=== PATIENT | female | born 1960 | race Caucasian/White ===

== ENCOUNTER 2017-09-28 17:21 | Inpatient (IN) ==
--- NOTE | 2017-09-28 17:50 | XR ---
EXAM DATE: 09/28/2017 5:45 PM EDT AGE/SEX: 56 years / Female INDICATIONS: . Midline chest pain. CLINICAL DATA: This is the patient's initial encounter. Patient reports that signs and symptoms have been present for 2 days and indicates a pain score of 6/10. MEDICAL/SURGICAL HISTORY: Cardiovascular disease. . Cardiac stent. COMPARISON: No prior exams available for comparison. FINDINGS: PA and lateral views of the chest demonstrate the lungs to be symmetrically aerated without evidence of mass, infiltrate or effusion. The cardiomediastinal contours are unremarkable. Osseous structures are intact. CONCLUSION: 1. No acute cardiopulmonary disease. Electronically signed by: Ming Roger MD 09/28/2017 5:49 PM EDT
[2017-09-28 18:14] LABS: Baso % (Auto) 0.4 % (0.0-2.0); Eos # (Auto) 0.2 th/mm3 (0.0-0.4); Eos % (Auto) 2.5 % (0.0-4.0); Hematocrit 39.2 % (35.0-46.0); Lymph % (Auto) 32.7 % (9.0-44.0); Mean Corpuscular HGB Conc 33.1 % (32.0-36.0); Mean Corpuscular Hemoglobin 30.6 pg (27.0-34.0); Mean Corpuscular Volume 92.4 fL (80.0-100.0); Mean Platelet Volume 7.8 fL (7.0-11.0); Mono # (Auto) 0.5 th/mm3 (0.0-0.9); Mono % (Auto) 8.6 % (0.0-8.0); Neut # (Auto) 3.5 th/mm3 (1.8-7.7); Neut % (Auto) 55.8 % (16.0-70.0); Platelet Count 301 th/mm3 (150-450); Red Blood Count 4.24 mil/mm3 (4.00-5.30); Red Cell Distribution Width 13.1 % (11.6-17.2); White Blood Count 6.2 th/mm3 (4.0-11.0)
[2017-09-28 18:15] LABS: Activated Partial Thrombo Time 26.6 sec (24.3-30.1); INR 1.1 Ratio; Prothrombin Time 10.7 sec (9.8-11.6)
[2017-09-28 18:25] LABS: Anion Gap 9 meq/L (5-15); Blood Urea Nitrogen 16 mg/dL (7-18); Calcium 8.9 mg/dL (8.5-10.1); Carbon Dioxide 25.8 meq/L (21.0-32.0); Chloride 107 meq/L (98-107); Glomerular Filtration Rate 62 mL/min (>89); Glucose,Random 99 mg/dL (74-106); Potassium 3.6 meq/L (3.5-5.1); Sodium 142 meq/L (136-145)
--- NOTE | 2017-09-28 19:29 | ED ---
HPI General Chief Complaint: Chest Pain Stated Complaint: chest pain Time Seen by Provider: 09/28/17 18:12 Source: patient Mode of arrival: ambulatory Limitations: no limitations History of Present Illness HPI narrative: 56-year-old female presents to the emergency department by private transportation for complaint of chest pain on and off since yesterday. Patient had chest pain it is 6/10 in intensity at 5:15 PM took one sublingual nitroglycerin with resolution of pain but had recurrent pain at 5:55 PM took an additional sublingual nitroglycerin and had resolution of pain but currently has discomfort 3-4/10 in intensity. Patient is describing her pain as heartburn and burning sensation with some radiation to the left upper extremity and left subscapular region. Patient states she was evaluated for same symptoms June 2017 and underwent stent of the LAD at subsequent restenting due to reocclusion August 02. Patient's surgical scheduler is Dr. Sullivan. Patient's been doing well until yesterday and today. Patient had some associated mild shortness of breath no nausea no vomiting no sweats no abdominal pain. Patient is unable to identify exacerbating symptoms does note that nitroglycerin does provide some relief. Patient did take 81 mg of aspirin this morning but none prior to arrival to the emergency departPatient does have history of dyslipidemia. Patient has family history of early onset heart disease. Patient denies hypertension tobaccoism or diabetes. 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 MD complaint: chest pain Complete Quality Measures for STEMI Alert Patients STEMI Alert: No Onset (ago): day(s) Duration: intermittent Onset: during rest Pain location: substernal Severity: moderate Severity scale (1-10): 6 Quality: dull and other (Indigestion) Pain radiation: LUE Relieving factors: nitroglycerin Exacerbating factors: nothing Context: other (Cardiac stent placed 06/2017) Associated symptoms: nausea (none now), dyspnea (mild) and cough (occasional) Treatments prior to arrival chest pain: nitroglycerin Related Data On Oral Contraceptives: No Home Medications Medication Instructions Recorded Confirmed aspirin 81 mg PO DAILY 09/28/17 09/28/17 clopidogrel [Plavix] 75 mg PO DAILY 09/28/17 09/28/17 diltiazem HCl 120 mg PO DAILY 09/28/17 09/28/17 gabapentin 300 mg PO HS 09/28/17 09/28/17 lansoprazole [Prevacid] 30 mg PO BID 09/28/17 09/28/17 methocarbamol [Robaxin] 500 mg PO DAILY 09/28/17 09/28/17 ranitidine HCl [Zantac] 300 mg PO HS 09/28/17 09/28/17 rosuvastatin [Crestor] 40 mg PO DAILY 09/28/17 09/28/17 temazepam 15 mg PO HS 09/28/17 09/28/17 Allergies Allergy/AdvReac Type Severity Reaction Status Date / Time clarithromycin Allergy Severe Verified 07/19/17 09:03 latex Allergy Severe Verified 07/19/17 09:03 tramadol Allergy Severe Verified 07/19/17 09:03 Review of Systems ROS: all other systems reviewed are negative [facility] Medical History Medical History CAD (coronary artery disease) (Acute) Connective tissue disease (Acute) Gastroparesis (Acute) High cholesterol (Acute) RHA (rheumatoid arthritis) (Acute) Surgical History Surgical History H/O breast augmentation (Acute) H/O heart artery stent (Acute) Hx of cholecystectomy (Acute) Social History Social History Substance History: No History of Abuse Second Hand Smoke Exposure: No Smoking Status: Never smoker How Often Do You Have a Drink Containing Alcohol: Never Recent Travel in [facility] within the Last 8 Weeks: No Recent Out of Country Travel within the Last 8 Weeks: No Immunization History Tetanus Immunization: <5 Years Hx Influenza Vaccine This Season: Yes Exam Narrative Exam Narrative: GENERAL: Well-nourished, well-developed patient.No acute distress no respiratory distress. SKIN: Focused skin assessment warm/dry. HEAD: Normocephalic. EYES: No scleral icterus. No injection or drainage. NECK: Supple, trachea midline. No JVD or lymphadenopathy. CARDIOVASCULAR: Regular rate and rhythm without murmurs, gallops, or rubs. RESPIRATORY: Breath sounds equal bilaterally. No accessory muscle use. GASTROINTESTINAL: Abdomen soft, non-tender, nondistended. MUSCULOSKELETAL: No cyanosis, or edema. BACK: Nontender without obvious deformity. No CVA tenderness. Course Reevaluation(s) Reevaluation #1: @ 19:31 CP: 0/10 after x 1 SL NTG 0.4mg; call placed to the patient's surgical scheduler Dr Sullivan Time: 19:31 Reevaluation #2: discussed with Dr Sullivan --start on nitropaste and heparin drip with bolus npo after midnight possible cardiac cath in the AM discussed with Dr Montalvo --admit to Dr Witt to [facility] Time: 19:55 Initial Documented Vital Signs Temperature 98.0 F 09/28/17 17:39 Pulse Rate 86 09/28/17 17:39 Respiratory Rate 17 09/28/17 17:39 Blood Pressure 145/70 H 09/28/17 17:39 Pulse Oximetry 98 09/28/17 17:39 Last Documented Vital Signs Temperature 98.0 F 09/28/17 17:39 Pulse Rate 62 09/28/17 19:52 Respiratory Rate 18 09/28/17 19:52 Blood Pressure 104/61 09/28/17 19:52 Pulse Oximetry 97 09/28/17 19:52 Medical Decision Making MDM Narrative Medical decision making narrative: 56-year-old female with known history of coronary vessel disease stenting 2 within the past 3 months with known history of dyslipidemia and premature onset heart disease in her family presents with intermittent retrosternal chest pressure that she describes as indigestion with referred pain to the left upper extremity and subscapular region currently discomfort is 3-4/10 in intensity at worst 6/10 in intensity patient has been placed on nurse monitoring with continuous pulse oximetry IV access has been obtained EKG was performed in the waiting room patient is identified to have normal sinus rhythm rate [address] elevation or injury pattern noted Q- wave is noted inferiorly. Patient did take nitroglycerin at 5:15 PM and at 5: 55 PM 6/10 in intensity chest pain; no associated symptoms at this time. Medical Screen Exam Complete: Yes Emergency Medical Condition: Yes Differential Diagnosis Differential Diagnosis: Chest pain, ACS, ID, PE Medical Records Medical records reviewed: Yes I reviewed the patient's medical records. Ethernet Network Architect Dr. Otis Sullivan; stent placed 06/26/17 and 08/02/17 Lab Data Result diagrams: 09/28/17 17:32 09/28/17 17:32 Lab Results 08/09/28/17 09/28/17 Range/Units 17:32 17:32 17:32 WBC 6.2 (4.0-11.0) th/mm3 RBC 4.24 (4.00-5.30) mil/mm3 Hgb 13.0 (11.6-15.3) gm/dL Hct 39.2 (35.0-46.0) % MCV 92.4 (80.0-100.0) fL MCH 30.6 (27.0-34.0) pg MCHC 33.1 (32.0-36.0) % RDW 13.1 (11.6-17.2) % Plt Count 301 (150-450) th/mm3 MPV 7.8 (7.0-11.0) fL Neut % (Auto) 55.8 (16.0-70.0) % Lymph % (Auto) 32.7 (9.0-44.0) % [place] % (Auto) 8.6 H (0.0-8.0) % Eos % (Auto) 2.5 (0.0-4.0) % Baso % (Auto) 0.4 (0.0-2.0) % Neut # (Auto) 3.5 (1.8-7.7) th/mm3 Lymph # (Auto) 2.0 (1.0-4.8) th/mm3 [place] # (Auto) 0.5 (0.0-0.9) th/mm3 Eos # (Auto) 0.2 (0.0-0.4) th/mm3 Baso # (Auto) 0.0 (0.0-0.2) th/mm3 WBC Differential . Differential Comment Auto diff final PT 10.7 (9.8-11.6) sec INR 1.1 Ratio APTT 26.6 (24.3-30.1) sec Sodium 142 (136-145) meq/L Potassium 3.6 (3.5-5.1) meq/L Chloride 107 (98-107) meq/L Carbon Dioxide 25.8 (21.0-32.0) meq/L Anion Gap 9 (5-15) meq/L BUN 16 (7-18) mg/dL Creatinine 0.94 (0.50-1.00) mg/dL Estimated GFR 62 L (>89) mL/min Random Glucose 99 (74-106) mg/dL Calcium 8.9 (8.5-10.1) mg/dL Troponin I Less than 0.02 L (0.02-0.05) ng/mL Imaging Data Radiologist's impression: Chest X-Ray 09/28/17 17:26 CONCLUSION: 1. No acute cardiopulmonary disease. ECG Data EKG Prior to Arrival: No Attestation: I personally reviewed and interpreted this ECG as follows: Prior ECG tracings: available for review Interpretation: EKG: Normal sinus rhythm rate 84 normal axis and intervals no acute ST elevation Q-wave noted inferiorly age-indeterminate Discharge Plan Discharge Disposition Patient Disposition: 30 Still Patient Discharge Condition Condition: Stable Discharge Details Diagnosis: Chest pain due to CAD Physicians Team ED Provider: Nancy Mejias Primary Care Provider: Subhash Padilla Rxs /Orders / Referrals /Forms Prescriptions: No Action methocarbamol [Robaxin] 500 mg Tablet 500 mg PO DAILY RF: 0 ranitidine HCl [Zantac] 300 mg Tablet 300 mg PO HS RF: 0 clopidogrel [Plavix] 75 mg Tablet 75 mg PO DAILY RF: 0 temazepam 15 mg Capsule 15 mg PO HS RF: 0 diltiazem HCl 120 mg Capsule,Extended Release 24 Hr 120 mg PO DAILY RF: 0 lansoprazole [Prevacid] 30 mg Capsule,Delayed Release(Dr/Ec) 30 mg PO BID RF: 0 gabapentin 300 mg Capsule 300 mg PO HS RF: 0 aspirin 81 mg Tablet,Chewable 81 mg PO DAILY RF: 0 rosuvastatin [Crestor] 40 mg Tablet 40 mg PO DAILY RF: 0 Discharge Instructions Patient Printed Instructions: Chest Pain (ED) Discharge Interventions Interventions: Vital Signs Last Done: 09/28/17 19:52 Status ED Status: With Doctor
[2017-09-28] MEDS ORDERED: Heparin Drip 25,000 UNIT/250 ML BAG IV.CONT PRN (19:43)
[2017-09-28] MEDS ORDERED: Heparin 10,000 UNITS/10 ML Vial (for IV use) IV.PUSH STA (19:43)
[2017-09-28] MEDS ORDERED: Famotidine PF Inj 20 MG/2 ML Vial IV.PUSH ONE (19:51)
[2017-09-28] MEDS: Sod Chloride 0.9% Inj 1,000 ML IV.CONT SCH (19:51)
[2017-09-28] MEDS ORDERED: Sodium Chlor 0.9% Inj 500 ML IV.SIG ONE (19:52)
[2017-09-28] MEDS ORDERED: Bisacodyl 10 MG Supp RECTAL PRN (20:07)
[2017-09-28] MEDS ORDERED: Morphine Inj 4 MG/ML Vial IV.PUSH ONE (20:53)
[2017-09-28 21:00] LABS: Magnesium 2.3 mg/dL (1.5-2.5)
[2017-09-28] MEDS ORDERED: Gabapentin 300 MG Capsule PO SCH (21:00)
[2017-09-28] MEDS ORDERED: Temazepam 15 MG Capsule PO SCH (21:00)
[2017-09-28 21:02] LABS: Creatine Kinase 101 U/L (26-192)
[2017-09-28] MEDS ORDERED: Nitroglycerin Drip Premix 50 MG/250 ML BOTTLE IV.CONT PRN (22:37)
[2017-09-28] MEDS ORDERED: Morphine Sulfate Inj 2 MG/ML Vial IV.PUSH PRN (22:38)
[2017-09-28 22:56] LABS: Creatine Kinase 83 U/L (26-192)
--- NOTE | 2017-09-29 00:16 | P.HPFP ---
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 Had some radiation into left arm. She also was mildly short of breath today and yesterday. She has been taking plavix and aspirin consistently. She has a history of CAD, s/pt stent to LAD in June, and repeat LHC in July. Symptoms today and yesterday typical of previous episodes of chest pain. She denies history of SC. Multimedia Producer is Dr. Oliva. Patient has history of mixed connective tissue disease, gastroparesis, GERD, HLD. Initial EKG and repeat showing NSR, no ischemic changes, initial troponin negative. ER physician did discuss with Dr. Oliva who recommended place in [facility] on heparin drip and NPO. After arriving to the [facility], patient began to develop severe right sided chest pain with radiation into the back, severe intensity, which has now resolved after placing her on nitroglycerin drip. Repeat EKG was unchanged. Patient seen at bedside now resting comfortably. - Diagnosis (1) Chest pain due to CAD Inpatient Certification: I certify that the inpatient services were ordered in accordance with Medicare regulations governing the order. This includes certification that hospital inpatient services are reasonable and necessary and in the case of services not specified as inpatient-only under 42 CFR 419.22(n), that they are appropriately provided as inpatient services in accordance to with the 2-midnight benchmark under 43 CFR 412.3(e) Estimated Total Length of Stay (Days): 3 Plans for Post Hospital Care: Home [facility] - History History Provided By: Patient - Medical History Medical History: Medical History (Last Reviewed 09/29/17 @ 00:53 by Caro Rasmussen MD) CAD (coronary artery disease) Connective tissue disease Gastroparesis High cholesterol RHA (rheumatoid arthritis) - Surgical History Surgical History: Surgical History (Last Reviewed 09/29/17 @ 00:53 by Caro Rasmussen MD) H/O breast augmentation H/O heart artery stent Hx of cholecystectomy - Tobacco History Second Hand Smoke Exposure: No Smoking Status: Never smoker - Alcohol History How Often Do You Have a Drink Containing Alcohol: Never - Substance Use History Substance History: No History of Abuse - Travel History Recent Travel in the [place] Within the Last 8 Weeks: No Recent Travel Out of the Country Within the Last 8 Weeks: No - Immunization History Tetanus Immunization: <5 Years Hx Influenza Vaccine This Season: Yes Medications and Allergies Active Medications: Active Medications Acetaminophen (Tylenol) 650 mg PO Q4H PRN PRN Reason: Temp > 100.4 Al Hydroxide/Mg Hydroxide (Milk Of Magnesia Liq) 30 ml PO Q12H PRN PRN Reason: Mild Constipation Atorvastatin Calcium (Lipitor) 80 mg PO DAILY TOMMIE Bisacodyl (Dulcolax Supp) 10 mg RECTAL DAILY PRN PRN Reason: SEVERE CONSITIPATION Diltiazem HCl (Cardizem Cd 24hr) 120 mg PO DAILY TOMMIE Famotidine (Pepcid) 20 mg PO BID TOMMIE Gabapentin (Neurontin) 300 mg PO HS TOMMIE Sodium Chloride (Ns Inj) 1,000 mls @ 60 mls/hr IV.CONT .[id number] TOMMIE Last Admin: 09/28/17 19:51 Dose: 100 mls/hr Heparin Sodium/Dextrose (Heparin/D5w 25,000 U/250 Ml) 25,000 unit in 250 mls @ 0 mls/hr IV.CONT TITRATE PRN; Protocol PRN Reason: Per Protocol Last Admin: 09/28/17 20:30 Dose: 7 units/hr, 0.07 mls/hr Nitroglycerin/Dextrose (Nitroglycerin Drip Premix) 50 mg in 250 mls @ 0 mls/hr IV.CONT TITRATE PRN; Protocol PRN Reason: Per Protocol Last Admin: 09/28/17 22:36 Dose: 5 mcg/min, 1.5 mls/hr Lactulose (Lactulose Liq) 30 ml PO DAILY PRN PRN Reason: SEVERE CONSITIPATION Methocarbamol (Robaxin) 500 mg PO DAILY [facility] Morphine Sulfate (Morphine Inj) 2 mg IV.PUSH Q3H PRN PRN Reason: CHEST PAIN Last Admin: 09/28/17 22:56 Dose: 2 mg Ondansetron HCl (Zofran Inj) 4 mg IV.PUSH Q6H PRN PRN Reason: NAUSEA OR VOMITING Pantoprazole Sodium (Protonix) 40 mg PO BID [facility] Sennosides (Senokot) 17.2 mg PO Q12H PRN PRN Reason: Moderate Constipation Temazepam (Restoril) 15 mg PO [facility] Allergies Allergy/AdvReac Type Severity Reaction Status Date / Time clarithromycin Allergy Severe Verified 07/19/17 09:03 latex Allergy Severe Verified 07/19/17 09:03 tramadol Allergy Severe Verified 07/19/17 09:03 Home Medications Medication Instructions Recorded Confirmed Type aspirin 81 mg PO DAILY 09/28/17 09/28/17 History clopidogrel [Plavix] 75 mg PO DAILY 09/28/17 09/28/17 History diltiazem HCl 120 mg PO DAILY 09/28/17 09/28/17 History gabapentin 300 mg PO HS 09/28/17 09/28/17 History lansoprazole [Prevacid] 30 mg PO BID 09/28/17 09/28/17 History methocarbamol [Robaxin] 500 mg PO DAILY 09/28/17 09/28/17 History ranitidine HCl [Zantac] 300 mg PO HS 09/28/17 09/28/17 History rosuvastatin [Crestor] 40 mg PO DAILY 09/28/17 09/28/17 History temazepam 15 mg PO HS 09/28/17 09/28/17 History Exam Vital signs: Vital Signs 09/28/17 17:39 09/28/17 18:12 09/28/17 19:17 Temperature 98.0 F Pulse Rate 86 71 62 Respiratory Rate 17 13 18 Blood Pressure 145/70 H 125/83 121/64 Pulse Oximetry 98 99 98 09/28/17 19:52 09/28/17 21:58 09/28/17 21:59 Temperature Pulse Rate 62 80 80 Respiratory Rate 18 18 18 Blood Pressure 104/61 144/71 H 151/78 H Pulse Oximetry 97 99 99 Intake & Output 09/28/17 09/28/17 09/29/17 06:59 18:59 06:59 Weight 60.328 kg - Constitutional no acute distress - Routine HEENT Exam Head: Present: normocephalic, atraumatic ENT: Present: mucous membranes moist, nares patent - Routine Chest/Breast/Axilla Exam Chest wall: Absent: tenderness - Routine Respiratory Exam Present: CTA bilaterally. Absent: accessory muscle use - Routine Cardiovascular Exam Present: RRR, S1, S2. Absent: murmur, irregular rhythm - Routine Abdominal Exam Present: soft, tenderness - Routine Extremities Exam Present: pulses intact. Absent: edema - Routine Skin Exam Present: intact - Routine Neurological Exam Present: alert, oriented X3 Results - Labs Result diagrams: 09/28/17 17:32 09/28/17 17:32 Abnormal lab results 09/28/17 09/28/17 09/28/17 Range/Units 17:32 17:32 21:55 [place] % (Auto) 8.6 H (0.0-8.0) % Estimated GFR 62 L (>89) mL/min Troponin I Less than 0.02 L Less than 0.02 L (0.02-0.05) ng/mL Short CBC 09/28/17 09/28/17 Range/Units 17:32 20:37 WBC 6.2 Cancelled (4.0-11.0) th/mm3 Hgb 13.0 Cancelled (11.6-15.3) gm/dL Hct 39.2 Cancelled (35.0-46.0) % Plt Count 301 Cancelled (150-450) th/mm3 BMP 09/28/17 17:32 Sodium 142 Potassium 3.6 Chloride 107 Carbon Dioxide 25.8 BUN 16 Creatinine 0.94 Calcium 8.9 Cardiac Enzymes 09/28/17 09/28/17 09/28/17 Range/Units 09:32 17:32 21:55 Total Creatine Kinase Cancelled 101 83 CK-MB (CK-2) Less than 1.0 (0.5-3.6) ng/mL Troponin I Less than 0.02 L Less than 0.02 L (0.02-0.05) ng/mL - Imaging Impressions Chest X-Ray 09/28/17 17:26 CONCLUSION: 1. No acute cardiopulmonary disease. Caprini VTE Risk Assessment Caprini VTE Risk Assessment: No/Low Risk (score <= 1) Caprini Risk Assessment Model: Point Value = 1 Point Value = 2 Point Value = 3 Point Value = 5 Age 41-60 Minor surgery BMI > 25 kg/m2 Swollen legs Varicose veins or History of unexplained or recurrent spontaneous Oral contraceptives or hormone replacement Sepsis (< 1 month) Serious lung disease, including pneumonia (< 1 month) Abnormal pulmonary function Acute myocardial infarction Congestive heart failure (< 1 month) History of inflammatory bowel disease Medical patient at bed rest Age 61-74 Arthroscopic surgery Major open surgery (> 45 min) Laparoscopic surgery (> 45 min) Malignancy Confined to bed (> 72 hours) Immobilizing plaster cast Central venous access Age >= 75 History of VTE Family history of VTE Factor V Leiden Prothrombin [id number] Lupus anticoagulant Anticardiolipin antibodies Elevated serum homocysteine Heparin-induced thrombocytopenia Other congenital or acquired thrombophilia Stroke (< 1 month) Elective arthroplasty Hip, pelvis, or leg fracture Acute spinal cord injury (< 1 month) Prophylaxis Regimen: Total Risk Factor Score Risk Level Prophylaxis Regimen 0-1 Low Early ambulation 2 Moderate Order ONE of the following: *Sequential Compression Device (SCD) *Heparin 5000 units SQ BID 3-4 Higher Order ONE of the following medications: *Heparin 5000 units SQ TID *Enoxaparin/Lovenox 40 mg SQ daily (WT < 150 kg, CrCl > 30 mL/min) *Enoxaparin/Lovenox 30 mg SQ daily (WT < 150 kg, CrCl > 10-29 mL/min) *Enoxaparin/Lovenox 30 mg SQ BID (WT < 150 kg, CrCl > 30 mL/min) AND/OR *Sequential Compression Device (SCD) 5 or more Highest Order ONE of the following medications: *Heparin 5000 units SQ TID (Preferred with Epidurals) *Enoxaparin/Lovenox 40 mg SQ daily (WT < 150 kg, CrCl > 30 mL/min) *Enoxaparin/Lovenox 30 mg SQ daily (WT < 150 kg, CrCl > 10-29 mL/min) *Enoxaparin/Lovenox 30 mg SQ BID (WT < 150 kg, CrCl > 30 mL/min) AND *Sequential Compression Device (SCD) Assessment and Plan - Assessment (1) Chest pain due to CAD Code(s): R07.9 - Chest pain, unspecified; I25.10 - Atherosclerotic heart disease of [place] coronary artery without angina pectoris Status: Acute - Assessment and Plan Admit to [facility]. Heparin drip and nitroglyercin drip as needed for chest pain. Current no ischemic changes on EKG. NPO. Cardiology to evaluated patient tomorrow for possible LHC.
[2017-09-29] MEDS: Famotidine 20 MG Tablet PO SCH ×2 (03:51→09:18)
[2017-09-29] MEDS: Sod Chloride 0.9% Inj 1,000 ML IV.CONT SCH (05:21)
[2017-09-29 05:37] LABS: Hematocrit 34.7 % (35.0-46.0); Hemoglobin 11.2 gm/dL (11.6-15.3); Mean Corpuscular HGB Conc 32.4 % (32.0-36.0); Mean Corpuscular Hemoglobin 30.6 pg (27.0-34.0); Mean Corpuscular Volume 94.7 fL (80.0-100.0); Mean Platelet Volume 7.7 fL (7.0-11.0); Platelet Count 243 th/mm3 (150-450); Red Blood Count 3.66 mil/mm3 (4.00-5.30); Red Cell Distribution Width 12.6 % (11.6-17.2); White Blood Count 5.6 th/mm3 (4.0-11.0)
[2017-09-29] MEDS: Acetaminophen 325 MG Tablet PO PRN ×2 (05:51→13:36)
[2017-09-29 05:58] LABS: Anion Gap 4 meq/L (5-15); Blood Urea Nitrogen 10 mg/dL (7-18); Calcium 8.4 mg/dL (8.5-10.1); Carbon Dioxide 27.6 meq/L (21.0-32.0); Chloride 113 meq/L (98-107); Glomerular Filtration Rate 85 mL/min (>89); Glucose,Random 94 mg/dL (74-106); Sodium 145 meq/L (136-145)
[2017-09-29] MEDS ORDERED: diazePAM 5 MG Tablet PO SCH (09:00)
[2017-09-29] MEDS ORDERED: dilTIAZem CD 120 MG Capsule PO SCH (09:00)
[2017-09-29] MEDS ORDERED: Methocarbamol 500 MG Tablet PO SCH (09:00)
[2017-09-29] MEDS ORDERED: Heparin/NS PF Inj 500 ML ONE (10:06)
[2017-09-29] MEDS ORDERED: fentaNYL Citrate Inj 100 MCG/2 ML Ampul ONE (10:07)
--- NOTE | 2017-09-29 11:06 | CATHPROC ---
[employer] HIS Report Study Information Study Number Admission Scheduled Start Study Start [id number] Sep 28 2017 7:54PM 09/29/2017 Sep 29 2017 9:32AM [place] [facility] Cardiac Catheterization Admit Source Facility Department Emergency department [facility] - Superintendent Recreation Physician and Clinical Staff Initial Otis Vaz Tools AdministratorMena Hendrickson,BRUNO Tools Administrator Jovana Barnett RN/BA Recorder Sabi Shelley,RT(R) Scrub Corinna Mcneil,KRUPA TECH2 Procedures Performed Procedure Location (Site) Vessel Name Angiogram LV LV Ventricle Coronary Angiograms LCA Left Coronary Coronary Angiograms RCA Right Coronary L Heart Cath Equipment Time Distribution Associate Description Size Mfg Part Number Used/Scraped TRANSDUCER, TRUWAVE [id number] 09:37 CHAVEZ MILLER * Used W/STOCKCOCK *[id number] [id number] *[id number] PIGTAIL ANG. 145 INFINITI 534-652S CATHETER *[id number] 10:46 DAIG/[facility] ANGIOSEAL, FR6 VIP FR 6 Used *[id number] 09:37 [employer] BLANKET,WARM AIR CCL * Used *[id number] 09:37 [employer] PACK, CCL CUSTOM * Used *[id number] 09:37 [employer] PACER PEN, SKIN DUAL W/ RULER * Used *[id number] 10:08 MEDTRONIC JL 4.0 DXTERITY CATHETER FR 5 Used *[id number] 09:37 Geno MEDICAL SHEATH, FR6.5 PRELUDE 11CM FR 6.5 038ACT Used *[id number] 09:37 [employer]o MEDICAL WIRE, 3MMJ .035 180CM 180CM Used *[id number] 09:37 NAMIC MANIFOLD, 4 PORT * Used *[id number] 10:35 NAMIC TUBING, HIGH PRESSURE 48" 48" Used *[id number] 09:37 [employer] OMNIPAQUE, 350 MG, 150ML 150ML [id number] Used 10:37 [employer]COMED OMNIPAQUE, 350 MG, 50ML 50ML [id number] Used Equipment Model, Serial, Lot Number and Expiration Data Description Model Number Serial Number Lot Number Expiration Date ANGIOSEAL, FR6 VIP [id number] 06-10-2018 History: Current Medications Medication Dosage/Unit Route Frequency Last Date/Time Taken Prevacid ZANTAC ASA PLAVIX CRESTOR History: Allergies Allergy Reaction clarithromycin tramadol latex History: Risk Factors Family History of Hypertension Dyslipidemia Previous PA Previous Heart Failure Premature CAD Yes Yes Yes No No Prior Valve Prior PCI Prior PCIDate Prior CABG Surgery No Yes 06/26/2017 No Cerebrovascular Peripheral Artery Chronic Lung On Dialysis Diabetes Disease Disease Disease No No No No No History: Symptoms/Diagnosis Selection Items Chest pain Palpitations History: Stress Tests Stress or Imaging Studies Performed No History: Other Disease Selection Items CAD Gerd History: Other Current Smoker No Labs Hgb (g/dl) Hct (%) WBC (l/cumm) Platelets (thousands) 11.60-17.00 35.00-51.00 4.00-11.00 150.00-450.00 11.2 34.7 5.6 243 Glucose (mg/dl) BUN (mg/dl) Creatinine (mg/dl) BUN:Creatinine (1:x) 74.00-106.00 7.00-18.00 0.50-1.30 10.00-20.00 94 10 0.7 14.3 Na (meq/l) K (meq/l) 136.00-145.00 3.50-5.10 145 4 INR (PTT:PT) 0.90-1.10 1.1 Troponin I (ng/ml) CPK (u/l) CPK-MB (ng/ML) 0.02-0.05 26.00-308.00 0.50-3.60 0.02 83 1.0 Medication Medication Total Dose (Bolus/Oral) Medication Total Dosage/Unit 1% XYLOCAINE 20 mL FENTANYL 50 mcg OXYGEN 2 l/min VERSED 2 mg Medications (Bolus/Oral) Medication Time Given Dosage/Unit Administered By Reason OXYGEN 09/29/2017 10:03:23 AM 2 l/min Mena Wagner 2 l/min OXYGEN given in lab by Mena Wagner RN via Nasal. VERSED 09/29/2017 10:23:29 AM 1 mg Jovana Barnett 1 mg VERSED given in lab by Jovana Barnett, BRUNO/BA in Left Antecubital via Peripheral IV. Ordered by Otis Altamirano. FENTANYL 09/29/2017 10:28:40 AM 50 mcg Hesher, Mena 50 mcg FENTANYL given in lab by Mena Wagner, RN in Left Antecubital via Peripheral IV. Ordered by Otis Sullivan. VERSED 09/29/2017 10:29:03 AM 1 mg Mena Wagner 1 mg VERSED given in lab by Mena Wagner, RN in Left Antecubital via Peripheral IV. Ordered by Otis Sebastian. 1% XYLOCAINE 09/29/2017 10:29:58 AM 20 mL Otis Sullivan 20 mL 1% XYLOCAINE given in lab by Otis Sullivan in Right Groin via Subcutaneous. Medication (Drip) Medication Time Given Dosage/Unit Concentration/Unit Diluent (ml) Solution HEPARIN DRIP STOPPED 09/29/2017 10:01:06 AM 6 units/hr 0 D5W 6 units/hr HEPARIN DRIP STOPPED given by Mena Wagner, BRUNO in Right Antecubital via Peripheral IV. P ump/Drip Flow = 0 ml/hr using D5W. IV Solutions 09/29/2017 10:01:05 AM 50 mL (IV) NaCl .9 Patient arrived on IV Solutions in Right Antecubital via Peripheral IV. Pump/Drip Flow using NaCl .9. NITROGLYCERIN DRIP 09/29/2017 10:01:03 AM 15 mcg/min 50 mg 250 D5W Patient arrived on 15 mcg/min NITROGLYCERIN DRIP in Right Antecubital via Peripheral IV. Pump/Drip Fl ow = 4.5 ml/hr using D5W with a concentration of 50 mg in 250 ml. Initial Case Assessment Cardiovascular Edema Present Skin color Skin None Normal Warm Dry Circulatory - Right Pulses Dorsalis Pedis Femoral 2 2 Scale (0,1,2,3,4,d) Circulatory - Left Pulses Dorsalis Pedis Femoral 2 2 Scale (0,1,2,3,4,d) Neurological State Oriented to time-place- Alert Moves all extremities person Chronological Log Time Study Chronological Log 9:53:22 Patient arrived via Bed. 10:00:30 Patient Name, D.O.B, / Armband Verified By R.N. 10:00:31 Consent signed by the physician and the patient and verified by the Superintendent Recreation staff. 10:00:40 Pre-op and post- op instructions given; patient acknowledges understanding of instructions. 10:00:45 Patient has been NPO for More than 6Hrs. 10:00:45 Skin Breakdown- none per pt 10:00:52 Patient Warmer Placed on the Table. 10:00:53 Kassie Prominences Protected 10:00:54 A # 20 IV was noted in the Antecubital (right). Grade = 0 10:00:54 A # 20 IV was noted in the Antecubital (left). Grade = 0 Patient arrived on 15 mcg/min NITROGLYCERIN DRIP in Right Antecubital via Peripheral IV. Pump/D rip Flow = 4.5 10:01:03 ml/hr using D5W with a concentration of 50 mg in 250 ml. 10:01:05 Patient arrived on IV Solutions in Right Antecubital via Peripheral IV. Pump/Drip Flow usin g NaCl .9. 6 units/hr HEPARIN DRIP STOPPED given by Mena Wagner RN in Right Antecubital via Peripheral IV. Pump/Drip Flow 10:01:06 = 0 ml/hr using D5W. 10:01:07 History and physical on the chart or being dictated. Assessment: Initial Case, Edema=None, Color=Normal, Skin = Warm, Dry Right Pulses: Dell Ped=2, Femoral=2 10:01:08 Left Pulses: Dell Ped=2, Femoral=2 Neurological: State=Alert, Ox3, DUTTON Vitals capture started with the following parameters, Patient=Adult, Interval=5 min, Initial Pr zunqmr=310 mmHg, 10:01:17 Deflation Rate=5 mmHg, Cuff placed on Right Arm 10:02:02 HR=61 bpm, XROR=393/72 mmhg, SpO2=97.0 % 10:03:23 2 l/min OXYGEN given in lab by Mena Wagner, BRUNO via Nasal. 10:03:40 Reference ECG taken 10:06:52 HR=62 bpm, YECP=380/70 mmhg, SpO2=99.0 % 10:07:33 Bilateral groins prepped with 2% chlorhexidine, and draped after a 3 minute waiting time. 10:11:55 HR=63 bpm, MQRJ=048/73 mmhg, SpO2=98.0 % 10:14:40 Pressure channel 1 zeroed. 10:15:22 Pt states burning in chest radiates to left scapula started, pain level 2. 10:15:41 MD paged 10:16:52 HR=69 bpm, GPOH=018/72 mmhg, SpO2=98.0 % 10:18:33 MD arrived. 10:22:30 HR=72 bpm, YTGX=898/68 mmhg, SpO2=97.0 % 10:23:29 1 mg VERSED given in lab by Jovana Barnett, RN/BA in Left Antecubital via Peripheral IV. Ordere d by Otis Sullivan. Time Out. Correct patient, correct procedure, correct physician, labs, allergies, and equipment verified with lab tech 10:25:52 team present. Fire risk assesment completed (see hard stop sheet for coding). Time Out Conc urred by MD and individual staff in procedure. 10:26:57 HR=73 bpm, JLWN=843/67 mmhg, SpO2=99.0 % 10:28:40 50 mcg FENTANYL given in lab by Mena Wagner RN in Left Antecubital via Peripheral IV. O rdered by Otis Sullivan. 10:29:03 1 mg VERSED given in lab by Mena Wagner RN in Left Antecubital via Peripheral IV. Order ed by Otis Sullivan. 10:29:50 Case Start 10:29:58 20 mL 1% XYLOCAINE given in lab by Otis Sullivan in Right Groin via Subcutaneous. 10:31:54 HR=61 bpm, QPPQ=174/64 mmhg, SpO2=99.0 % 10:31:56 Access site was Right Femoral Artery. 10:32:01 A SHEATH, FR6.5 PRELUDE 11CM FR 6.5 was advanced into the Fem Art (right) using the Percuta neous technique. A PIGTAIL ANG. 145 INFINITI CATHETER FR 6 was advanced over a wire. OMNIPAQUE, 350 MG, 150ML 15 0ML was 10:34:18 used for injections. 10:35:47 Pressure channel 1 zeroed. Recorded Pressure: LV, HR=60, Condition=Condition 1 10:36:01 (Left Ventricle) LV 133/1/15 10:36:51 The LV was injected at 8 cc/sec for a total of 24. OMNIPAQUE, 350 MG, 50ML 50ML used. 10:36:55 HR=68 bpm, SGEK=327/54 mmhg, SpO2=99.0 % Recorded Pressure: LV, Ao, HR=79, Condition=Condition 1 10:37:50 (Left Ventricle) LV 143/3/20, (Aorta) Ao 141/62/96 10:38:19 Catheter was removed A JL 4.0 DXTERITY CATHETER FR 5 was advanced over a wire. OMNIPAQUE, 350 MG, 150ML 150ML was us ed for 10:38:40 injections. Recorded Pressure: Ao, HR=74, Condition=Condition 1 10:39:43 (Aorta) Ao 144/69/102 10:40:11 The LCA was injected and visualized at various angles. OMNIPAQUE, 350 MG, 150ML 150ML used . 10:42:33 HR=87 bpm, MUPR=466/73 mmhg, BaE5=043.0 % 10:42:43 Catheter was removed A 3DRC INFINITI CATHETER FR 4 was advanced over a wire. OMNIPAQUE, 350 MG, 150ML 150ML was used for 10:43:16 injections. 10:45:05 The RCA was injected and visualized at various angles. OMNIPAQUE, 350 MG, 150ML 150ML used . 10:46:10 Catheter was removed 10:46:57 HR=80 bpm, REMQ=070/76 mmhg, CcG4=803.0 % 10:47:45 An injection in the Fem Art (right) was made through the SHEATH, FR6.5 PRELUDE 11CM FR 6.5. 10:49:08 ANGIOSEAL, FR6 VIP FR 6 placement in the Fem Art (right) 10:51:58 HR=80 bpm, HXLT=462/70 mmhg, NfV9=164.0 % 10:52:30 Case End (Physician broke scrub) 11:03:23 Sterile dressing applied to site 11:03:24 No case complications noted. 11:03:25 Cine recording checked. 11:03:30 Report called to floor. 11:03:31 Bedside Report will be given. 11:03:33 Implantable Device card placed in patient's chart. 11:03:36 A Left Heart Cath was performed. 11:03:37 [facility] - Cont[facility] Media Used In Study Contrast Total Opened (mL) Total Used (mL) Total Wasted (mL) Omnipaque 200 75 125 End Study - Maximum Contrast Load Max Contrast Load (mL) 430.8 End Study - Radiation Exposure Fluoro Time (minutes) 2.6 End Study - Patient Disposition Complications Transferred To Interventional Outcome No Telemetry Bed No attempt made
[2017-09-29] MEDS ORDERED: Sod Chloride 0.9% Inj 1,000 ML IV.CONT SCH (11:15)
--- NOTE | 2017-09-29 12:12 | MB ---
cc: Otis Sullivan MD DATE: 09/29/2017 REASON FOR CONSULTATION: Evaluation of severe chest pain. HISTORY OF PRESENT ILLNESS: Elizabeth Irwin is a 56-year-old woman well known to me. She is complicated because she has mixed connective tissue disease, but also has coronary artery disease. On 06/26, I performed a cardiac catheterization on her for unstable angina. I stented her LAD with a 2.75 x 22 mm [place] stent, postdilated with a 3.0 noncompliant balloon. The stent starts immediately past the first diagonal branch. On 07/19, I placed a stent on the distal end, which is a 3.0 x 12 mm Mehdi deployed at 12 atmospheres. She comes in now with severe chest pain. She has been noticed to be extra tired all week. afternoon, she noticed heartburn. Saturday, she started getting severe burning in her upper chest, severe shortness of breath with exertion and feeling tired. Her left arm was aching and she had pain radiating to her elbow into her jaw. Last night around 10 p.m., she had pain on the right side going back to her shoulder blade, it was extremely severe. She is shoulders. She also has mixed connective tissue disease and is followed by Dr. Samuels out of [place] and his [place] office. She has a positive SELENA and a positive CLINICAL ACCOUNT LIAISON. She has abnormalities of her hands on x-rays, but the rheumatoid factor has been negative. Of note, her pain responds to nitroglycerin, but it keeps coming back. She is currently on IV nitroglycerin. She is also having pain in her hands and pain in her left hip. She has been doing cardiac rehab and doing fairly well with that. These symptoms clearly are a departure from the way she was feeling earlier. MEDICATIONS: Include: 1. Diltiazem 120 mg. 2. Aspirin. 3. Clopidogrel. 4. Prevacid. 5. Zantac. 6. Crestor. 7. Calcium. 8. Neurontin. 9. Robaxin. ALLERGIES: INCLUDE ERYTHROMYCIN, LATEX, AND TRAMADOL. PAST MEDICAL HISTORY: Includes coronary artery disease, hyperlipidemia, mixed connective tissue disease, gastroesophageal reflux disease, migraine headaches, gastroparesis. PAST SURGICAL HISTORY: Includes her stents as described above, tubal ligation, ovarian cyst removal, previous endoscopy and colonoscopy. FAMILY HISTORY: Positive for coronary artery disease and is also positive for rheumatoid arthritis in a sister. SOCIAL HISTORY: [place] in . REVIEW OF SYSTEMS: She has had no belching, no troubles with urination. She previously had blood on tissues when she wiped after a bowel movement, but that stopped when her Brilinta was changed to clopidogrel. She has had previous hemorrhoids. Her headaches actually have been improved. She has had no rashes. She has had no trouble swallowing. Remaining review of systems is negative. PHYSICAL EXAMINATION: GENERAL: Shows a thin, mildly anxious, white female. She does not appear to be in acute distress. VITAL SIGNS: Charted. HEENT: Unremarkable. NECK: No JVD. No bruits. CHEST: Clear to auscultation. CARDIAC: Shows normal first and second heart sounds, regular rate and rhythm. There is a grade 1/6 early peaking systolic ejection murmur. ABDOMEN: Soft, nontender. EXTREMITIES: No clubbing, cyanosis, or edema. NEUROLOGIC: Alert and oriented with appropriate mood and affect. LABORATORY DATA: Lab work that has been generated on her so far shows hematocrit was 39.2 yesterday, 34.7 today. Her creatinine is 0.71. Her troponins have been negative x3. Her VerifyNow is 214, indicating some reduction in the effect of her clopidogrel, but technically not a nonresponder. In the medical literature, most nonresponders are considered to have a PRU greater than 240, although numbers above 194 make her suspicious for incomplete response to clopidogrel. Her chest x-ray shows no acute disease. IMPRESSION: A complicated 56-year-old white female with mixed connective tissue disease and coronary artery disease. Her pain is truly unstable. She is on IV nitroglycerin. It is not 100% clear if it is cardiac in origin. Her cardiac enzymes are negative. Her EKG does not show any changes. It is possible it could be GI or esophageal in origin. It is also possible she could be having microvascular disease, which is not uncommon with some of the mixed connective tissue disease picture. Her symptoms are not stable enough to think it would be delgado and we proceeded with a cardiac catheterization today, as opposed to waiting until tomorrow. Informed consent has been obtained. is on her way in. Plan is to perform diagnostic cath with possible intervention depending on the anatomical findings. Further therapy to be determined. MD SHA Rivera/montserrat/nithya , 09:00 AM , 09:11 AM
--- NOTE | 2017-09-29 12:16 | P.DS ---
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 Had some radiation into left arm. She also was mildly short of breath today and yesterday. She has been taking plavix and aspirin consistently. She has a history of CAD, s/pt stent to LAD in June, and repeat LHC in July. Symptoms today and yesterday typical of previous episodes of chest pain. She denies history of AL. Microelectronics Assembler is Dr. Oliva. Patient has history of mixed connective tissue disease, gastroparesis, GERD, HLD. Initial EKG and repeat showing NSR, no ischemic changes, initial troponin negative. ER physician did discuss with Dr. Oliva who recommended place in [facility] on heparin drip and NPO. After arriving to the [facility], patient began to develop severe right sided chest pain with radiation into the back, severe intensity, which has now resolved after placing her on nitroglycerin drip. Repeat EKG was unchanged. Patient seen at bedside now resting comfortably. DS: Diagnosis - Discharge Diagnosis (1) Chest pain Status: Acute DS: Medications - Discharge Medications Prescriptions: nifedipine 30 mg PO DAILY 30 Days #30 tab DS: Summary Hospital Course: Chest pain due to CAD Initially on Heparin drip and nitroglyercin drip as needed for chest pain. no ischemic changes on EKG. Cardiology consulted S/P cardiac cath 09/[address] Sullivan - no intervention needed cardiology DC'd Cardizem and started Procardia Cleared for DC per cardiology Patient now asymptomatic - Time Spent with Patient Total time spent providing and/or coordinating discharge services: Greater than 30 minutes Exam Vital signs: Vital Signs 09/28/17 17:39 09/28/17 18:12 09/28/17 19:17 Temperature 98.0 F Pulse Rate 86 71 62 Respiratory Rate 17 13 18 Blood Pressure 145/70 H 125/83 121/64 Blood Pressure [Left Arm] Blood Pressure [Right Arm] Pulse Oximetry 98 99 98 09/28/17 19:52 09/28/17 20:00 09/28/17 21:58 Temperature Pulse Rate 62 80 Respiratory Rate 18 18 Blood Pressure 104/61 144/71 H Blood Pressure [Left Arm] Blood Pressure [Right Arm] Pulse Oximetry 97 97 99 09/28/17 21:59 09/28/17 22:10 09/28/17 22:30 Temperature 98.4 F Pulse Rate 80 71 66 Respiratory Rate 18 22 Blood Pressure 151/78 H 118/60 Blood Pressure [Left Arm] Blood Pressure [Right Arm] Pulse Oximetry 99 97 97 09/28/17 23:00 09/29/17 00:00 09/29/17 01:00 Temperature Pulse Rate 71 60 63 Respiratory Rate 18 Blood Pressure 98/53 L Blood Pressure [Left Arm] Blood Pressure [Right Arm] Pulse Oximetry 98 09/29/17 02:00 09/29/17 03:00 09/29/17 04:00 Temperature Pulse Rate 55 L 55 L 52 L Respiratory Rate 18 Blood Pressure 94/52 L Blood Pressure [Left Arm] Blood Pressure [Right Arm] Pulse Oximetry 98 09/29/17 05:00 09/29/17 05:08 09/29/17 07:00 Temperature Pulse Rate 53 L 51 L 56 L Respiratory Rate 16 Blood Pressure 127/63 Blood Pressure [Left Arm] Blood Pressure [Right Arm] Pulse Oximetry 100 09/29/17 07:28 09/29/17 08:00 09/29/17 09:00 Temperature 98.3 F Pulse Rate 68 62 68 Respiratory Rate 16 Blood Pressure 131/63 Blood Pressure [Left Arm] Blood Pressure [Right Arm] Pulse Oximetry 99 99 09/29/17 09:26 09/29/17 11:12 09/29/17 11:18 Temperature 98.2 F 98.2 F Pulse Rate 68 68 Respiratory Rate 18 16 16 Blood Pressure 133/62 133/62 Blood Pressure [Left Arm] 136/63 Blood Pressure [Right Arm] 128/62 Pulse Oximetry 97 99 99 Intake & Output 09/28/17 09/29/17 09/29/17 18:59 06:59 18:59 Intake Total 1500 / 1500 Balance 1500 / 1500 Weight 60.328 kg Intake: IV 1500 / 1500 NS Inj 1,000 ML @ 60 mls/hr IV. 1000 / 1000 CONT .[id number] [facility] Rx#:[id number] NS Inj 500 ML @ Wide Open IV. 500 / 500 SIG BOLUS ONE Rx#:[id number] Other: Date of Last Bowel Movement 09/28/17 Narrative: GENERAL: This is a well-nourished, well-developed patient, in no apparent distress. CARDIOVASCULAR: Regular rate and rhythm RESPIRATORY: Clear to auscultation. Breath sounds equal bilaterally. GASTROINTESTINAL: Abdomen soft, non-tender, nondistended. Normal active bowel sounds MUSCULOSKELETAL: Extremities without clubbing, cyanosis, or edema. NEURO: Alert & Oriented x4 to person, place, time, situation. Moves all ext x4 Results Procedures completed during hospitalization: cardiac cath with Dr. Sullivan 09/29/17 Labs on day of discharge: Labs from last 24 hours 09/29/17 09/29/17 09/29/17 08:18 05:18 05:18 WBC 5.6 Corrected WBC RBC 3.66 L Hgb 11.2 L Hct 34.7 L MCV 94.7 MCH 30.6 MCHC 32.4 RDW 12.6 Plt Count 243 MPV 7.7 Neut % (Auto) Lymph % (Auto) [place] % (Auto) Eos % (Auto) Baso % (Auto) Neut # (Auto) Lymph # (Auto) [place] # (Auto) Eos # (Auto) Baso # (Auto) WBC Differential Differential Comment Hematology Comments PT INR APTT 53.8 H Plt Funct P2Y12 Units Sodium 145 Potassium 4.0 Chloride 113 H Carbon Dioxide 27.6 Anion Gap 4 L BUN 10 Creatinine 0.71 Estimated GFR 85 L Random Glucose 94 Calcium 8.4 L Magnesium Total Creatine Kinase CK-MB (CK-2) Troponin I Less than 0.02 L 09/29/17 09/28/17 09/28/17 01:51 21:55 20:46 WBC Corrected WBC RBC Hgb Hct MCV MCH MCHC RDW Plt Count MPV Neut % (Auto) Lymph % (Auto) [place] % (Auto) Eos % (Auto) Baso % (Auto) Neut # (Auto) Lymph # (Auto) [place] # (Auto) Eos # (Auto) Baso # (Auto) WBC Differential Differential Comment Hematology Comments PT INR APTT 60.3 H D Plt Funct P2Y12 Units 214 Sodium Potassium Chloride Carbon Dioxide Anion Gap BUN Creatinine Estimated GFR Random Glucose Calcium Magnesium Total Creatine Kinase 83 CK-MB (CK-2) Troponin I Less than 0.02 L 09/28/17 09/28/17 09/28/17 20:37 17:32 17:32 WBC Cancelled Corrected WBC Cancelled RBC Cancelled Hgb Cancelled Hct Cancelled MCV Cancelled MCH Cancelled MCHC Cancelled RDW Cancelled Plt Count Cancelled MPV Cancelled Neut % (Auto) Lymph % (Auto) [place] % (Auto) Eos % (Auto) Baso % (Auto) Neut # (Auto) Lymph # (Auto) [place] # (Auto) Eos # (Auto) Baso # (Auto) WBC Differential Differential Comment Hematology Comments Cancelled PT 10.7 INR 1.1 APTT 26.6 Plt Funct P2Y12 Units Sodium 142 Potassium 3.6 Chloride 107 Carbon Dioxide 25.8 Anion Gap 9 BUN 16 Creatinine 0.94 Estimated GFR 62 L Random Glucose 99 Calcium 8.9 Magnesium 2.3 Total Creatine Kinase 101 CK-MB (CK-2) Less than 1.0 Troponin I Less than 0.02 L 09/28/17 09/28/17 09/28/17 17:32 09:32 09:32 WBC 6.2 Corrected WBC RBC 4.24 Hgb 13.0 Hct 39.2 MCV 92.4 MCH 30.6 MCHC 33.1 RDW 13.1 Plt Count 301 MPV 7.8 Neut % (Auto) 55.8 Lymph % (Auto) 32.7 [place] % (Auto) 8.6 H Eos % (Auto) 2.5 Baso % (Auto) 0.4 Neut # (Auto) 3.5 Lymph # (Auto) 2.0 [place] # (Auto) 0.5 Eos # (Auto) 0.2 Baso # (Auto) 0.0 WBC Differential . Differential Comment Auto diff final Hematology Comments PT INR APTT Plt Funct P2Y12 Units Sodium Potassium Chloride Carbon Dioxide Anion Gap BUN Creatinine Estimated GFR Random Glucose Calcium Magnesium Cancelled Total Creatine Kinase Cancelled CK-MB (CK-2) Troponin I - Impressions ITS Impressions Chest X-Ray 09/28/17 17:26 CONCLUSION: 1. No acute cardiopulmonary disease. <Aaron Witt - Last Filed: 09/29/17 12:31> Date of admission: 09/28/17 19:54 Primary care physician: Subhash Padilla DS: Summary Hospital Course: Patient examined. Assessment and plan formulated with Vanesa CRAMER I agree with the above. Pt and family were updated at the bedside. - Time Spent with Patient Total time spent providing and/or coordinating discharge services: Exam Vital signs: Vital Signs 09/28/17 17:39 09/28/17 18:12 09/28/17 19:17 Temperature 98.0 F Pulse Rate 86 71 62 Respiratory Rate 17 13 18 Blood Pressure 145/70 H 125/83 121/64 Blood Pressure [Left Arm] Blood Pressure [Right Arm] Pulse Oximetry 98 99 98 09/28/17 19:52 09/28/17 20:00 09/28/17 21:58 Temperature Pulse Rate 62 80 Respiratory Rate 18 18 Blood Pressure 104/61 144/71 H Blood Pressure [Left Arm] Blood Pressure [Right Arm] Pulse Oximetry 97 97 99 09/28/17 21:59 09/28/17 22:10 09/28/17 22:30 Temperature 98.4 F Pulse Rate 80 71 66 Respiratory Rate 18 22 Blood Pressure 151/78 H 118/60 Blood Pressure [Left Arm] Blood Pressure [Right Arm] Pulse Oximetry 99 97 97 09/28/17 23:00 09/29/17 00:00 09/29/17 01:00 Temperature Pulse Rate 71 60 63 Respiratory Rate 18 Blood Pressure 98/53 L Blood Pressure [Left Arm] Blood Pressure [Right Arm] Pulse Oximetry 98 09/29/17 02:00 09/29/17 03:00 09/29/17 04:00 Temperature Pulse Rate 55 L 55 L 52 L Respiratory Rate 18 Blood Pressure 94/52 L Blood Pressure [Left Arm] Blood Pressure [Right Arm] Pulse Oximetry 98 09/29/17 05:00 09/29/17 05:08 09/29/17 07:00 Temperature Pulse Rate 53 L 51 L 56 L Respiratory Rate 16 Blood Pressure 127/63 Blood Pressure [Left Arm] Blood Pressure [Right Arm] Pulse Oximetry 100 09/29/17 07:28 09/29/17 08:00 09/29/17 09:00 Temperature 98.3 F Pulse Rate 68 62 68 Respiratory Rate 16 Blood Pressure 131/63 Blood Pressure [Left Arm] Blood Pressure [Right Arm] Pulse Oximetry 99 99 09/29/17 09:26 09/29/17 11:12 09/29/17 11:18 Temperature 98.2 F 98.2 F Pulse Rate 68 68 Respiratory Rate 18 16 16 Blood Pressure 133/62 133/62 Blood Pressure [Left Arm] 136/63 Blood Pressure [Right Arm] 128/62 Pulse Oximetry 97 99 99 09/29/17 12:00 Temperature Pulse Rate 64 Respiratory Rate Blood Pressure Blood Pressure [Left Arm] Blood Pressure [Right Arm] Pulse Oximetry Intake & Output 09/28/17 09/29/17 09/29/17 18:59 06:59 18:59 Intake Total 1500 / 1500 Balance 1500 / 1500 Weight 60.328 kg Intake: IV 1500 / 1500 NS Inj 1,000 ML @ 60 mls/hr IV. 1000 / 1000 CONT .[id number] [facility] Rx#:[id number] NS Inj 500 ML @ Wide Open IV. 500 / 500 SIG BOLUS ONE Rx#:[id number] Other: Date of Last Bowel Movement 09/28/17 Results Labs on day of discharge: Labs from last 24 hours 09/29/17 09/29/17 09/29/17 08:18 05:18 05:18 WBC 5.6 Corrected WBC RBC 3.66 L Hgb 11.2 L Hct 34.7 L MCV 94.7 MCH 30.6 MCHC 32.4 RDW 12.6 Plt Count 243 MPV 7.7 Neut % (Auto) Lymph % (Auto) [place] % (Auto) Eos % (Auto) Baso % (Auto) Neut # (Auto) Lymph # (Auto) [place] # (Auto) Eos # (Auto) Baso # (Auto) WBC Differential Differential Comment Hematology Comments PT INR APTT 53.8 H Plt Funct P2Y12 Units Sodium 145 Potassium 4.0 Chloride 113 H Carbon Dioxide 27.6 Anion Gap 4 L BUN 10 Creatinine 0.71 Estimated GFR 85 L Random Glucose 94 Calcium 8.4 L Magnesium Total Creatine Kinase CK-MB (CK-2) Troponin I Less than 0.02 L 09/29/17 09/28/17 09/28/17 01:51 21:55 20:46 WBC Corrected WBC RBC Hgb Hct MCV MCH MCHC RDW Plt Count MPV Neut % (Auto) Lymph % (Auto) [place] % (Auto) Eos % (Auto) Baso % (Auto) Neut # (Auto) Lymph # (Auto) [place] # (Auto) Eos # (Auto) Baso # (Auto) WBC Differential Differential Comment Hematology Comments PT INR APTT 60.3 H D Plt Funct P2Y12 Units 214 Sodium Potassium Chloride Carbon Dioxide Anion Gap BUN Creatinine Estimated GFR Random Glucose Calcium Magnesium Total Creatine Kinase 83 CK-MB (CK-2) Troponin I Less than 0.02 L 09/28/17 09/28/17 09/28/17 20:37 17:32 17:32 WBC Cancelled Corrected WBC Cancelled RBC Cancelled Hgb Cancelled Hct Cancelled MCV Cancelled MCH Cancelled MCHC Cancelled RDW Cancelled Plt Count Cancelled MPV Cancelled Neut % (Auto) Lymph % (Auto) [place] % (Auto) Eos % (Auto) Baso % (Auto) Neut # (Auto) Lymph # (Auto) [place] # (Auto) Eos # (Auto) Baso # (Auto) WBC Differential Differential Comment Hematology Comments Cancelled PT 10.7 INR 1.1 APTT 26.6 Plt Funct P2Y12 Units Sodium 142 Potassium 3.6 Chloride 107 Carbon Dioxide 25.8 Anion Gap 9 BUN 16 Creatinine 0.94 Estimated GFR 62 L Random Glucose 99 Calcium 8.9 Magnesium 2.3 Total Creatine Kinase 101 CK-MB (CK-2) Less than 1.0 Troponin I Less than 0.02 L 09/28/17 09/28/17 09/28/17 17:32 09:32 09:32 WBC 6.2 Corrected WBC RBC 4.24 Hgb 13.0 Hct 39.2 MCV 92.4 MCH 30.6 MCHC 33.1 RDW 13.1 Plt Count 301 MPV 7.8 Neut % (Auto) 55.8 Lymph % (Auto) 32.7 [place] % (Auto) 8.6 H Eos % (Auto) 2.5 Baso % (Auto) 0.4 Neut # (Auto) 3.5 Lymph # (Auto) 2.0 [place] # (Auto) 0.5 Eos # (Auto) 0.2 Baso # (Auto) 0.0 WBC Differential . Differential Comment Auto diff final Hematology Comments PT INR APTT Plt Funct P2Y12 Units Sodium Potassium Chloride Carbon Dioxide Anion Gap BUN Creatinine Estimated GFR Random Glucose Calcium Magnesium Cancelled Total Creatine Kinase Cancelled CK-MB (CK-2) Troponin I - Impressions ITS Impressions Chest X-Ray 09/28/17 17:26 CONCLUSION: 1. No acute cardiopulmonary disease. Discharge Plan - Discharge Order Discharge Orders: Discharge Order (Routine); Ordered 09/29/17 Ordered By: Vanesa Leone Cardiology Clear for Discharge (Routine); Ordered 09/29/17 Ordered By: Otis Sullivan - Discharge Details Anticipated Discharge Date: 09/29/17 - Physicians Team Primary Care Provider: Subhash Padilla Attending Provider: Aaron Witt Other Providers: Otis Sullivan MD
--- NOTE | 2017-09-29 14:22 | MA ---
cc: Otis Sullivan MD DATE: 09/29/2017 PROCEDURES PERFORMED: 1. Left heart catheterization. 2. Left ventriculography. 3. Coronary angiography. 4. Right femoral angiography with Angio-Seal placement. DESCRIPTION OF PROCEDURE: The patient was brought to the cardiac catheterization lab under urgent conditions. The right groin was prepped and draped in sterile fashion. Using 1% lidocaine for local anesthesia, a 6.5 [place] sheath was placed in the right femoral artery requiring only a single femoral stick. Left ventricular pressure was then recorded using a pigtail catheter, followed by left ventriculography and then a pullback. Coronary angiography was completed using a 5 Chadian left 4 Raffi and a 4 Chadian 3 DRC catheter. She had no significant obstructions. Angiography was then obtained of the right femoral artery via the sheath, followed by uncomplicated Angio-Seal closure. There were no complications. FINDINGS: 1. HEMODYNAMICS: Left ventricular pressure was 143/3 with an end-diastolic pressure of 20. Aortic pressure was 144/69 with a mean of 102. There was no gradient during pullback from the left ventricle to the aorta. 2. LEFT VENTRICULOGRAPHY: Left ventriculography reveals a symmetrically dwight left ventricle with an EF of 65%. 3. CORONARY ANGIOGRAPHY: The left main coronary artery appears normal. The left anterior descending artery has some eccentric 5% proximal disease. Right at the bifurcation of the diagonal, there is about 5% disease of the LAD. She has a long zone of stenting just past the diagonal, which is very widely patent with no significant restenosis. Just distal to the stent, there is an area of slight bridging in the mid LAD. The remainder of the LAD appears normal. The circumflex artery is nondominant and gives off to 1 small obtuse marginal branch and 1 large posterolateral branch and appears normal. The right coronary artery is dominant and has about 5% focal proximal and 5% mid disease. CONCLUSIONS: 1. Mildly elevated left ventricular end-diastolic pressure. 2. Normal left ventricular systolic function. 3. Minimal nonocclusive coronary artery disease with widely patent stents in the left anterior descending. PLAN: I am going to change her diltiazem to nifedipine on the chance that maybe her symptoms are related to coronary spasm. I am more suspicious, however, that her mixed connective tissue disease is active. She may also be having esophageal spasm. MD HSA Rivera/chaparrita , 11:02 AM , 11:08 AM
--- NOTE | 2017-09-29 15:57 | ECG ---
Date Performed: 09/28/2017 Time Performed: 17:26:46 PTAGE: 56 years EKG: Sinus rhythm NORMAL ECG Since PREVIOUS TRACING , no significant change noted PREVIOUS TRACIN07/20/2017 04.57 DOCTOR: Ashish Olivares Interpretating Date/Time 09/29/2017 15:56:55
--- NOTE | 2017-09-29 15:57 | ECG ---
Date Performed: 09/28/2017 Time Performed: 21:47:44 PTAGE: 56 years EKG: Sinus rhythm NORMAL ECG Since PREVIOUS TRACING , no significant change noted PREVIOUS TRACIN09/28/2017 17.26 DOCTOR: Ashish Olivares Interpretating Date/Time 09/29/2017 15:57:07
--- NOTE | 2017-09-29 15:58 | ECG ---
Date Performed: 09/28/2017 Time Performed: 22:31:06 PTAGE: 56 years EKG: Sinus rhythm Normal ECG Since PREVIOUS TRACING , no significant change noted PREVIOUS TRACIN09/28/2017 21.47 DOCTOR: Ashish Olivares Interpretating Date/Time 09/29/2017 15:57:18
[2017-09-29] MEDS ORDERED: Iohexol 350 MG/ML 100 ML Vial (for Cath Lab) IVCONTRAST ONE (16:09)
== END 2017-09-29 16:10 | disposition home or self-care (01) ==
LOC: NEPC 17:21 → MERGE 19:54 → NEDA 19:54 → HCPC 21:59
PROVIDERS: ADMIT Hospitalist; ATTEND Hospitalist